=== PATIENT | male | born 1960 | race African-American/Black ===

== ENCOUNTER 2020-09-08 01:26 | Observation (INO) ==
[2020-09-08] MEDS ORDERED: NITROGLYCERIN 2% OINT 1 INCH/GM PACK TOP STA (01:53)
[2020-09-08] MEDS ORDERED: ONDANSETRON 4 MG/2 ML VIAL IV STA (01:53)
[2020-09-08] MEDS ORDERED: MORPHINE 4 MG/1 ML VIAL IV STA (01:53)
[2020-09-08 02:17] LABS: Albumin 3.7 G/DL (3.4-5.0); Bilirubin,Total 0.8 MG/DL (0.2-1.0); Calcium 9.7 MG/DL (8.5-10.1); Osmolality,Calculated 287.8 MOS/KG (273-304); Potassium 3.2 MMOL/L (3.5-5.1); Total Protein 7.5 G/DL (6.4-8.2)
[2020-09-08] MEDS ORDERED: POTASSIUM CHLORIDE 20 MEQ TABLET PO STA (02:21)
[2020-09-08 02:23] LABS: INR 1.2; PT Patient Result 12.7 SECS (9.8-11.9)
[2020-09-08] MEDS ORDERED: PANTOPRAZOLE 40 MG VIAL IV STA (02:26)
[2020-09-08] MEDS ORDERED: ACETAMINOPHEN 500 MG TABLET PO STA (02:26)
[2020-09-08] MEDS ORDERED: ALUM/MAG/SIMETH/LIDO VISC 1:1 30 ML BOTTLE PO STA (02:26)
[2020-09-08 02:27] LABS: Basophils % 0.6 % (0.0-0.8); Eosinophils # 0.1 10*3/uL (0.0-0.87); Eosinophils % 2.2 % (0.00-10.9); Hematocrit 43.2 VOL% (42.0-52.0); Hemoglobin 14.4 GM/DL (14.0-18.0); Immature Granulocytes % 0.8 %; Immature Granulocytes Absolute 0.05 #; Lymphocytes # 1.1 10*3/uL (1.4-4.0); Lymphocytes % 16.6 % (21.2-54.2); Mean Corpuscular HGB Conc 33.3 GM/DL (32-36); Mean Corpuscular Volume 84.5 FL (87-102); Mean Platelet Volume 11.7 FL (9.6-12.0); Monocytes % 3.3 % (1.7-12.7); Neutrophils % 76.5 % (38.7-73.9); Platelet Count 136 T/CUMM (130-400); Red Blood Count 5.11 MC/CUMM (3.8-5.5); Red Cell Distribution Width 15.9 % (9.3-17.3); White Blood Count 6.3 T/CUMM (4-12)
[2020-09-08 02:28] LABS: Bacteria,Urine Occasional /HPF (Few); Bilirubin,Urine Negative (Negative); Blood, Urine Small mg/dL (Negative); Glucose,Urine (UA) Negative (Negative); Hyaline Casts,Urine 1 /LPF (0-3); Ketones,Urine Negative (Negative); Mucus,Urine Occasional /LPF (Occasional); Nitrite,Urine Negative (Negative); Protein,Urine Negative; RBC,Urine 2 /HPF (0-4); Urine Appearance CLEAR (Clear); Urine Color Straw (Yellow); Urine Specific Gravity 1.011 (1.001-1.035); Urine Urobilinogen < 2.0 EU/DL (0.2-1.0); WBC,Urine 3 /HPF (0-6)
[2020-09-08 02:29] LABS: Barbiturates Screen,Urine Negative (Negative); Benzodiazepines Screen,Urine Negative (Negative); Cannabinoid Screen,Urine Negative (Negative); Opiate Screen,Urine Negative (Negative); Phencyclidine Screen,Urine Negative (Negative)
[2020-09-08] MEDS ORDERED: ACETAMINOPHEN 500 MG TABLET ONE (02:31)
[2020-09-08] MEDS ORDERED: PANTOPRAZOLE 40 MG VIAL IV ONE (02:31)
[2020-09-08] MEDS ORDERED: ALUM/MAG/SIMETH/LIDO VISC 1:1 30 ML BOTTLE PO ONE (02:31)
[2020-09-08] MEDS ORDERED: MAGNESIUM SULF RIDER 2 GM in PREMIX 1 EACH IV STA (02:31)
[2020-09-08] MEDS ORDERED: hydrALAZINE 20 MG/1 ML VIAL IV STA (02:33)
[2020-09-08] MEDS ORDERED: MORPHINE 4 MG/1 ML VIAL IV PRN (04:28)
[2020-09-08] MEDS ORDERED: DEXTROSE 50% 25 GM/50 ML VIAL IV PRN (04:28)
[2020-09-08] MEDS ORDERED: GLUCAGON 1 MG VIAL IM PRN (04:28)
[2020-09-08] MEDS ORDERED: diphenhydrAMINE CAP 25 MG CAPSULE PO PRN (04:28)
[2020-09-08] MEDS ORDERED: NICOTINE 21 MG/24 HR PATCH TRANSDERM PRN (04:28)
[2020-09-08] MEDS ORDERED: hydrALAZINE 20 MG/1 ML VIAL IV PRN (04:28)
[2020-09-08] MEDS ORDERED: ONDANSETRON 4 MG/2 ML VIAL IV PRN (04:28)
[2020-09-08 05:51] LABS: Risk Ratio 2.31
[2020-09-08] MEDS: INSULIN REGULAR 100 UNIT/ML SUBCUT SCH ×4 (08:34→20:33)
[2020-09-08] MEDS: ASPIRIN EC 81 MG TABLET PO SCH (10:18)
[2020-09-08] MEDS ORDERED: lisinopriL 20 MG TABLET PO SCH (14:00)
[2020-09-08] MEDS ORDERED: ATORVASTATIN 40 MG TABLET PO SCH (21:00)
[2020-09-09 05:46] LABS: Basophils % 0.7 % (0.0-0.8); Eosinophils # 0.2 10*3/uL (0.0-0.87); Eosinophils % 3.8 % (0.00-10.9); Hematocrit 39.4 VOL% (42.0-52.0); Hemoglobin 13.1 GM/DL (14.0-18.0); Immature Granulocytes % 0.2 %; Immature Granulocytes Absolute 0.01 #; Lymphocytes # 1.6 10*3/uL (1.4-4.0); Mean Corpuscular HGB Conc 33.2 GM/DL (32-36); Mean Corpuscular Volume 85.8 FL (87-102); Mean Platelet Volume 12.7 FL (9.6-12.0); Monocytes % 4.7 % (1.7-12.7); Neutrophils % 55.6 % (38.7-73.9); Platelet Count 125 T/CUMM (130-400); Red Blood Count 4.59 MC/CUMM (3.8-5.5); Red Cell Distribution Width 15.9 % (9.3-17.3); White Blood Count 4.5 T/CUMM (4-12)
[2020-09-09 06:09] LABS: Atypical Lymphocytes Few; Band Neutrophils 1 % (0-10); Eosinophils 3 % (0-10); Lymphocytes 48 % (20-55); Segmented Neutrophils 47 % (50-85); Total Cells Counted 100
[2020-09-09 06:10] LABS: Hypochromasia 1+; Microcytosis 1+; Ovalocytes Few; Platelet Estimate Adequate; Target Cells Few
[2020-09-09 06:23] LABS: Calcium 8.5 MG/DL (8.5-10.1); Osmolality,Calculated 281.1 MOS/KG (273-304); Potassium 3.2 MMOL/L (3.5-5.1)
[2020-09-09] MEDS ORDERED: POTASSIUM CHLORIDE 20 MEQ TABLET PO ONE (07:39)
[2020-09-09] MEDS ORDERED: REGADENOSON 0.4 MG/5 ML SYRINGE IV ONE (08:58)
[2020-09-09] MEDS ORDERED: lisinopriL 20 MG TABLET PO SCH (09:00)
[2020-09-09] MEDS ORDERED: ATORVASTATIN 20 MG TABLET PO SCH (09:00)
[2020-09-09] MEDS ORDERED: amLODIPine 10 MG TABLET PO SCH (09:00)
[2020-09-09] MEDS: ASPIRIN EC 81 MG TABLET PO SCH (10:06)
[2020-09-09] MEDS: INSULIN REGULAR 100 UNIT/ML SUBCUT SCH ×3 (10:08→16:08)
[2020-09-09] MEDS ORDERED: TAMSULOSIN 0.4 MG CAPSULE PO SCH (10:29)
[2020-09-09 16:18] VITALS: BP 146/91
[2020-09-09] MEDS ORDERED: METOPROLOL TARTRATE 25 MG TABLET PO SCH (21:00)
== END 2020-09-09 16:35 ==
LOC: EDUNIT# → EDBD → N.ED 01:26 → N.EDINP 01:26 → N.TELEN 05:05
PROVIDERS: ADMIT Internal Medicine; ATTEND Internal Medicine